=== PATIENT | female | born 1975 | race Caucasian/White ===

== ENCOUNTER → 2018-07-12 15:55 | Outpatient (CLI) | payer BC ==
[2011-11-24 17:14] VITALS: BMI 24.4
== END | disposition home or self-care (01) ==
LOC: D.MAMMO 09:00
DX: Z12.31 Encounter for screening mammogram for malignant neoplasm of breast (principal)

== ENCOUNTER 2018-10-07 06:30 | Inpatient (IN) | payer BC ==
[2018-10-05 10:47] LABS: ANION GAP 8.5 mmol/L (8-16); CALCIUM 9.1 mg/dL (8.5-10.1); CARBON DIOXIDE 30.8 mmol/L (21.0-32.0); CREATININE - SERUM 0.9 mg/dL (0.6-1.3); POTASSIUM - SERUM 4.3 mmol/L (3.5-5.1)
[2018-10-05 10:57] LABS: BASOPHILS 0.4 % (0-2); EOSINOPHILS 1.9 % (0-7); HEMATOCRIT 38.3 % (36.0-48.0); HEMOGLOBIN 11.9 g/dL (12-16); IMMATURE GRANULOCYTES 0.2 % (0-5); LYMPHOCYTES 29.3 % (15-50); MCH 26.3 pg (26.0-34.0); MCHC 31.1 g/dL (31.0-37.0); MCV 84.7 fL (80.0-100.0); MEAN PLATELET VOLUME 9.4 fL (7.4-10.4); MONOCYTES 11.2 % (2-11); PLATELET COUNT 315 10x3/uL (130-400); RBC 4.52 10x6/uL (4.00-5.40); RDW 14.7 % (11.5-14.5); WBC 8.6 10x3/uL (4.8-10.8)
[~2018-10-07] VITALS: Ht 162.6 cm; Wt 54.1 kg
[2018-10-07] VITALS (9 sets, daily range): BP systolic 106–147; BP diastolic 64–89; Ht 162.6 cm; Wt 54.1 kg
[~2018-10-07 06:30] MED LIST: PERCOGESIC PO
[2018-10-07 06:45] LABS: HCG URINE NEGATIVE (NEGATIVE)
[2018-10-07 17:06] LABS: BASOPHILS 0.1 % (0-2); EOSINOPHILS 0 % (0-7); HEMATOCRIT 33.3 % (36.0-48.0); HEMOGLOBIN 10.4 g/dL (12-16); IMMATURE GRANULOCYTES 0.2 % (0-5); LYMPHOCYTES 6.9 % (15-50); MCH 26.6 pg (26.0-34.0); MCHC 31.2 g/dL (31.0-37.0); MCV 85.2 fL (80.0-100.0); MEAN PLATELET VOLUME 8.9 fL (7.4-10.4); NEUTROPHILS 88.8 % (40-80); PLATELET COUNT 265 10x3/uL (130-400); RBC 3.91 10x6/uL (4.00-5.40); RDW 14.5 % (11.5-14.5); WBC 13.1 10x3/uL (4.8-10.8)
[2018-10-07 17:16] LABS: CALC OSMOLALITY 272 mosm/kg (275-300); CALCIUM 8.8 mg/dL (8.5-10.1); CARBON DIOXIDE 26.4 mmol/L (21.0-32.0); CHLORIDE - SERUM 103 mmol/L (98-107); CREATININE - SERUM 0.8 mg/dL (0.6-1.3); GLUCOSE 130 mg/dL (74-106); POTASSIUM - SERUM 4.6 mmol/L (3.5-5.1); SODIUM 136 mmol/L (136-145); UREA NITROGEN 9 mg/dL (7-18); eGFR NON AFRICAN AMERICAN 83 mL/min (90-120)
[2018-10-08 05:05] VITALS: BP 123/70
[2018-10-08 07:40] VITALS: BP 126/59
[2018-10-08 08:10] LABS: BASOPHILS 0.1 % (0-2); EOSINOPHILS 0.1 % (0-7); HEMATOCRIT 32.8 % (36.0-48.0); HEMOGLOBIN 10.1 g/dL (12-16); IMMATURE GRANULOCYTES 0.3 % (0-5); LYMPHOCYTES 25.8 % (15-50); MCH 26.2 pg (26.0-34.0); MCHC 30.8 g/dL (31.0-37.0); MEAN PLATELET VOLUME 9.2 fL (7.4-10.4); MONOCYTES 9.4 % (2-11); NEUTROPHILS 64.3 % (40-80); PLATELET COUNT 240 10x3/uL (130-400); RBC 3.86 10x6/uL (4.00-5.40); RDW 14.4 % (11.5-14.5); WBC 11.7 10x3/uL (4.8-10.8)
[2018-10-08 08:27] LABS: ANION GAP 11.9 mmol/L (8-16); CALCIUM 8.6 mg/dL (8.5-10.1); CARBON DIOXIDE 27.8 mmol/L (21.0-32.0); POTASSIUM - SERUM 3.7 mmol/L (3.5-5.1)
[2018-10-08] MEDS ORDERED: NORCO 10-325 TA1 TAB PO (09:41)
[2018-10-08] MEDS ORDERED: MOTRIN600 MG PO (09:42)
== END 2018-10-08 13:20 | disposition home or self-care (01) | DRG 743 ==
LOC: D.LD 06:30 → D.SDCHOLD 06:30 → D.LD 10:22
PROVIDERS: Obstetrics & Gynecology
PROC: 0UT90ZZ Resection of Uterus, Open Approach (ICD-10-PCS; principal; 2018-10-07 07:30)
PROC: 0UB70ZZ Excision of Bilateral Fallopian Tubes, Open Approach (ICD-10-PCS; 2018-10-07 07:30)
DX: N80.0 Endometriosis of uterus (principal); N92.0 Excessive and frequent menstruation with regular cycle; N32.89 Other specified disorders of bladder; D64.9 Anemia, unspecified; Z87.891 Personal history of nicotine dependence